=== PATIENT | female | born 1965 ===

== ENCOUNTER 2016-12-20 11:21 | Observation (INO) | payer OTHER ==
[2016-12-20 11:24] VITALS: BMI 24.7
[2016-12-20] MEDS ORDERED: Sodium Chloride 0.9% 2,000 ML IV STA (11:50)
--- NOTE | 2016-12-20 12:01 | ED PDOC ---
Arrival/HPI - General Chief Complaint: High Blood Sugar Time Seen by Provider: 12/20/16 11:48 Historian: Patient - History of Present Illness Narrative History of Present Illness (Text): 12/20/16 11:50 Cecy Ellis is a 51 year old female who presents to the emergency department complaining of 2 days duration of elevated blood sugar. Patient states that she also feels tired. Patient denies any pain, nausea, vomiting, or any other complaint at this time. Time/Duration: 4-6 hours Symptom Onset: Gradual Symptom Course: Unchanged Activities at Onset: Light Context: Home Past Medical History - Provider Review Nursing Documentation Reviewed: Yes - Infectious Disease Hx of Infectious Diseases: None - Reproductive Menopause: Yes - Cardiac Hx Cardiac Disorders: No - Pulmonary Hx Respiratory Disorders: No - Neurological Hx Neurological Disorder: No - HEENT Hx HEENT Disorder: No - Renal Hx Renal Disorder: No - Endocrine/Metabolic Hx Endocrine Disorders: Yes Hx Diabetes Mellitus Type 2: Yes (NIDD) - Hematological/Oncological Hx Blood Disorders: No - Integumentary Hx Dermatological Disorder: No - Musculoskeletal/Rheumatological Hx Musculoskeletal Disorders: No - Gastrointestinal Hx Gastrointestinal Disorders: No - Genitourinary/Gynecological Hx Genitourinary Disorders: No - Psychiatric Hx Psychophysiologic Disorder: No Hx Substance Use: No - Anesthesia Hx Anesthesia: No Family/Social History - Physician Review Nursing Documentation Reviewed: Yes Family/Social History: No Known Family HX Smoking Status: Never Smoked Hx Alcohol Use: No Hx Substance Use: No Allergies/Home Meds Allergies/Adverse Reactions: Allergies No Known Allergies Allergy (Verified 12/20/16 11:24) Home Medications: Home Meds Medication Instructions Recorded Confirmed MetFORMIN [glucoPHAGE] 850 mg PO DAILY 12/20/16 12/20/16 Physical Exam - Physical Exam Narrative Physical Exam (Text): - Review of Systems Constitutional: Generalized weakness. absent: Weight Change, Fevers Eyes: Normal ENT: Normal Respiratory: Normal absent: SOB, Cough, Sputum Cardiovascular: Normal absent: Chest pain, Palpitations, Syncope Gastrointestinal: Normal absent: Abdominal pain, Diarrhea, Nausea, Vomiting Genitourinary: Normal. absent: Dysuria, Frequency, Hematuria Musculoskeletal: Normal. absent: Arthralgias, Back Pain, Neck Pain Skin: Normal Neurological: Normal absent: Focal Weakness Endocrine: Normal Hemo/Lymphatic: Normal Psychiatric: Normal - Physical exam Patient appears age appropriate, speaking full sentences without difficulty. - Systems Exam Head: Present: Atraumatic, Normocephalic Pupils: Present: PERRL Extraocular Muscles: Present: EOMI Conjunctiva: Present: Normal Mouth: Present: Moist Mucous Membranes Neck: Present: Normal Range of Motion. No: MIDLINE TENDERNESS, Paraspinal Tenderness Respiratory/Chest: Present: Clear to Auscultation, Good Air Exchange. No: Respiratory Distress, Accessory Muscle Use, Tachypneic Cardiovascular: Present: Regular Rate and Rhythm, Normal S1, S2, Peripheral Pulses Present. No: Murmurs Abdomen: Present: Normal Bowel Sounds, No: Tenderness, Peritoneal Signs, Rebound, Guarding, Distention Back: Present: Normal Inspection. No: Midline Tenderness, Paraspinal Tenderness Upper Extremity: Present: Normal Inspection. No: Cyanosis, Edema Lower Extremity: Present: Normal Inspection. No: Edema Neurological: Present: GCS=15, Speech Normal, cranial nerves II through XII fully intact with no cerebellar abnormality, neuro-sensory fully intact. No focal neurological deficits. Skin: Present: Warm, Dry, Normal Color. No: Rashes Lymphatic: Present: OX3, NI, NC Psychiatric: Present: Alert, Oriented x 3, Normal Insight, Normal Concentration Vital Signs Reviewed: Yes Vital Signs Temp Pulse Resp BP Pulse Ox 12/20/16 13:18 70 16 140/90 100 12/20/16 11:29 98.2 F 88 19 115/76 97 Temperature: Afebrile Blood Pressure: Normal Pulse: Regular Respiratory Rate: Normal Appearance: Positive for: Well-Appearing, Non-Toxic, Comfortable Pain Distress: None Mental Status: Positive for: Alert and Oriented X 3 Finger Stick Blood Glucose: 462 Medical Decision Making ED Course and Treatment: 12/20/16 11:38 Impression: 51 year old female complaining of 2 days durations of elevated blood sugar. Differential Diagnosis include but are not limited to: Hyperglycemia vs. DKA vs. Dehydration Plan: -- EKG -- Chest X-ray -- VBG -- Urinalysis and Urine Culture -- Labs -- IV Fluids -- Reassess and disposition Progress Notes: EKG shows NSR at [address]-segment elevations, normal intervals. with no prior for comparison. Interpreted by me. 12/20/16 13:06 Chest X-ray: Creator : Ada Eng MD FINDINGS: Examination limited by habitus. LUNGS:No focal consolidation. Please note that chest x-ray has limited sensitivity for the detection of pulmonary masses. PLEURA:No significant pleural effusion identified. No definite pneumothorax . CARDIOVASCULAR:The cardiomediastinal silhouette appears within normal limits of size. OSSEOUS STRUCTURES: No acute osseous abnormality identified. VISUALIZED UPPER ABDOMEN:Mild elevation of the right hemidiaphragm. OTHER FINDINGS:None. IMPRESSION: No focal consolidation, significant pleural effusion, or definite pneumothorax identified. 12/20/16 14:34 repeat glucose in the 300's pt states she feels better states she has no PMD. will likely need insulin and diabetic education hospitalist debbi pt agrees with admission plan 12/20/16 14:[address] Lopez, accepted obs under his service - Lab Interpretations Lab Results: 12/20/16 12:12 12/20/16 12:12 Lab Results 12/20/16 12:12: Sodium 133, Chloride 92 L, Potassium 5.3 H, Carbon Dioxide 27, Anion Gap 19, BUN 16, Creatinine 0.6, Est GFR ( Amer) > 60, Est GFR (Non- Af Amer) > 60, Random Glucose 505 H*, Calcium 11.1 H, Total Bilirubin 0.8, AST 65 H, ALT 109 H, Alkaline Phosphatase 154 H, Lactate Dehydrogenase 397, Total Creatine Kinase 74, Troponin I < 0.01, Total Protein 9.3 H, Albumin 4.9 H, Globulin 4.4, Albumin/Globulin Ratio 1.1 12/20/16 12:12: pO2 62 H, VBG pH 7.37, VBG pCO2 43.0, VBG HCO3 24.9, VBG Total CO2 26.2, VBG O2 Sat (Calc) 92.5 H, VBG Base Excess -0.6 L, VBG Potassium 4.0, Sodium 134.0, Chloride 99.0, Glucose 466 H*, Lactate 1.6, FiO2 21.0, Venous Blood Potassium 4.0 12/20/16 12:12: PT 11.2, INR 1.04, APTT 25.9 12/20/16 12:12: WBC 5.9, RBC 4.90, Hgb 14.6, Hct 42.2, MCV 86.1, MCH 29.8, MCHC 34.6, RDW 12.4, Plt Count 234, MPV 11.5 H, Gran % 50.0, Lymph % (Auto) 44.4 H, [place] % (Auto) 4.6, Eos % (Auto) 0.7 L, Baso % (Auto) 0.3, Gran # 2.96, Lymph # 2.6, [place] # 0.3, Eos # 0.0, Baso # 0.02 12/20/16 12:07: Urine Color Yellow, Urine Appearance Clear, Urine pH 6.0, Ur Specific [place] 1.010, Urine Protein Negative, Urine Glucose (UA) >=1000, Urine Ketones Negative, Urine Blood Negative, Urine Nitrate Negative, Urine Bilirubin Negative, Urine Urobilinogen 0.2, Ur Leukocyte Esterase Negative I have reviewed the lab results: Yes - RAD Interpretation Radiology Orders: 12/20/16 11:51 CHEST PORTABLE [RAD] Stat - Medication Orders Current Medication Orders: Discontinued Medications Sodium Chloride (Sodium Chloride 0.9%) 2,000 mls @ 1,000 mls/hr IV .Q2H STA Stop: 12/20/16 13:49 Last Admin: 12/20/16 12:03 Dose: 1,000 mls/hr - Scribe Statement The provider has reviewed the documentation as recorded by the Monie Morillo Provider Scribe Attestation: All medical record entries made by the Roniibe were at my direction and personally dictated by me. I have reviewed the chart and agree that the record accurately reflects my personal performance of the history, physical exam, medical decision making, and the department course for this patient. I have also personally directed, reviewed, and agree with the discharge instructions and disposition. Disposition/Present on Arrival - Present on Arrival Any Indicators Present on Arrival: No History of DVT/PE: No History of Uncontrolled Diabetes: No Urinary Catheter: No History of Decub. Ulcer: No History Surgical Site Infection Following: None - Disposition Have Diagnosis and Disposition been Completed?: Yes Diagnosis: Hyperglycemia Disposition: HOSPITALIZED Disposition Time: 14:37 Patient Plan: Observation Condition: FAIR
[2016-12-20 12:14] LABS: ADD MANUAL DIFF? NO
[2016-12-20 12:16] LABS: VENOUS BLOOD GAS BASE EXCESS -0.6 mmol/L (0.0-2.0); VENOUS BLOOD PH 7.37 (7.32-7.43)
[2016-12-20 12:21] LABS: BASO # 0.02 K/mm3 (0.0-2.0); BASO % 0.3 % (0.0-3.0); EOS % 0.7 % (1.5-5.0); GRAN # 2.96 (1.4-6.5); HEMATOCRIT 42.2 % (36.0-48.0); LYMPH # 2.6 (1.2-3.4); LYMPH % 44.4 % (22.0-35.0); MEAN CELL VOLUME 86.1 fL (80.0-105.0); MEAN CORPUSCULAR HEMOGLOBIN 29.8 pg (25.0-35.0); MEAN CORPUSCULAR HGB CONC 34.6 g/dl (31.0-37.0); MEAN PLATELET VOLUME 11.5 fl (7.0-11.0); MONO # 0.3 (0.1-0.6); MONO % 4.6 % (1.0-6.0); PLATELET COUNT 234 10^3/uL (120.0-450.0); RED CELL DISTRIBUTION WIDTH 12.4 % (11.5-14.5); WHITE BLOOD COUNT 5.9 10^3/ul (4.5-11.0)
[2016-12-20 12:21] LABS: URINE APPEARANCE CLEAR (CLEAR); URINE BILIRUBIN NEGATIVE (NEGATIVE); URINE BLOOD NEGATIVE (NEGATIVE); URINE COLOR YELLOW (YELLOW); URINE GLUCOSE (UA) >=1000 mg/dL (NEGATIVE); URINE KETONE NEGATIVE (NEGATIVE); URINE LEUKOCYTE ESTERASE NEGATIVE Leu/uL (NEGATIVE); URINE PROTEIN NEGATIVE mg/dL (<30 mg/dL); URINE UROBILINOGEN 0.2 E.U./dL (<1 E.U./dL)
[2016-12-20 12:31] LABS: ALB/GLOB RATIO 1.1 (1.1-1.8); ALKALINE PHOSPHATASE 154 U/L (38-133); ALT/SGPT 109 U/L (7-56); AST/SGOT 65 U/L (15-39); BILIRUBIN,TOTAL 0.8 mg/dL (0.2-1.3); BLOOD UREA NITROGEN 16 mg/dL (7-21); CALCIUM 11.1 mg/dL (8.4-10.5); CARBON DIOXIDE 27 mmol/L (21-33); CHLORIDE 92 mmol/L (98-107); GFR AFRICAN-AMERICAN > 60; POTASSIUM 5.3 mmol/L (3.6-5.0); SODIUM 133 mmol/L (132-148); TOTAL PROTEIN 9.3 g/dL (5.8-8.3)
[2016-12-20 12:34] LABS: GLUCOSE,RANDOM 505 mg/dL (70-110)
[2016-12-20 12:38] LABS: INR 1.04 (0.93-1.08); PARTIAL THROMBOPLASTIN TIME 25.9 Seconds (23.7-30.8)
[2016-12-20 12:50] LABS: TROPONIN I < 0.01 ng/mL
--- NOTE | 2016-12-20 13:08 | RAD ---
HISTORY: weak COMPARISON: None available. TECHNIQUE: Chest, one view. FINDINGS: Examination limited by habitus. LUNGS: No focal consolidation. Please note that chest x-ray has limited sensitivity for the detection of pulmonary masses. PLEURA: No significant pleural effusion identified. No definite pneumothorax . CARDIOVASCULAR: The cardiomediastinal silhouette appears within normal limits of size. OSSEOUS STRUCTURES: No acute osseous abnormality identified. VISUALIZED UPPER ABDOMEN: Mild elevation of the right hemidiaphragm. OTHER FINDINGS: None. IMPRESSION: No focal consolidation, significant pleural effusion, or definite pneumothorax identified.
[2016-12-20] MEDS ORDERED: Pneumococcal 23-Valent Vaccine IM ONE (15:17)
[2016-12-20] MEDS: Sodium Chloride 0.9% 1,000 ML IV SCH (15:33)
--- NOTE | 2016-12-20 15:55 | CARD ---
APPROVED REPORT EKG Measurement Heart [id number] <Conclusion> Normal sinus rhythm Normal ECG
--- NOTE | 2016-12-20 15:59 | US ---
HISTORY: elevated LFTs COMPARISON: None available. TECHNIQUE: Sonographic evaluation of the abdomen. FINDINGS: LIVER: Measures 13.7 cm in sagittal dimension. Echogenic liver may be seen in setting of hepatic parenchymal disease or fatty infiltration. No focal hepatic mass identified. The main portal vein appears patent with normal directional flow. No intrahepatic bile duct dilatation. GALLBLADDER: No gallstones. No gallbladder wall thickening. Negative sonographic Terry's sign as assessed by the deckhand. COMMON BILE DUCT: Measures 3 mm. No stones. No dilatation. PANCREAS: Not well visualized. RIGHT KIDNEY: Measures 9.3 x 4.6 x 5.1 cm. No obstructing calculus or hydronephrosis identified. LEFT KIDNEY: Measures 9.2 x 6.3 x 5.8 cm. No obstructing calculus or hydronephrosis identified. 0.9 x 0.7 x 0.8 cm anechoic avascular lesion, consistent with cyst. SPLEEN: Measures approximately 8.4 cm. AORTA: Limited views appear unremarkable. IVC: Limited views appear unremarkable. OTHER FINDINGS: None. IMPRESSION: Echogenic liver may be seen in setting of hepatic parenchymal disease or fatty infiltration. 9 mm probable left renal cyst.
[2016-12-20] MEDS: Enoxaparin 40 mg Syringe SC SCH (16:05)
[2016-12-20 16:08] LABS: BLOOD UREA NITROGEN 12 mg/dL (7-21); CALCIUM 9.4 mg/dL (8.4-10.5); CARBON DIOXIDE 25 mmol/L (21-33); CHLORIDE 102 mmol/L (98-107); CHOLESTEROL 165 mg/dL (130-200); GFR AFRICAN-AMERICAN > 60; GLUCOSE,RANDOM 287 mg/dL (70-110); MAGNESIUM 1.6 mg/dL (1.7-2.2); POTASSIUM 4.5 mmol/L (3.6-5.0); SODIUM 137 mmol/L (132-148)
[2016-12-20] MEDS: Insulin Reg-MEDIUM-Coverage SC SCH ×2 (17:38→21:40)
--- NOTE | 2016-12-20 17:45 | CP.PCM.HP ---
<Delbert Nelson - Last Filed: 12/20/16 17:49> History of Present Illness - History of Present Illness History of Present Illness: CC: elevated blood sugars 51 year old female with pmh of DM on Metformin, and HTN who presents to the emergency department complaining of elevated blood sugars. Pt states that she checked her blood sugar at home and it was 330's. She states that she only takes Metformin for her DM denies taking insulin. She states that she also had associated blurry vision. Pt also c/o heart palpitations and polyuria recently. She denies this ever occurring before. She denies recent change in diet. Denies any headache, dizziness, + blurry vision, fever, chills, nausea, vomiting, sob, chest pain, +palpitations, abdominal pain, urinary or bm changes. PMH: DM and HTN PSH: denies Med: Metformin and lasix 40 PO ALL: NKA SH: denies drinking, smoking, and drugs. Unemployed FH: dad had liver disease. Present on Admission - Present on Admission Any Indicators Present on Admission: No Review of Systems - Review of Systems All systems: reviewed and no additional remarkable complaints except (HPI) Past Patient History - Infectious Disease Hx of Infectious Diseases: None - Past Social History Smoking Status: Never Smoked Alcohol: None Drugs: Denies - CARDIAC Hx Cardiac Disorders: No - PULMONARY Hx Respiratory Disorders: No - NEUROLOGICAL Hx Neurological Disorder: No - HEENT Hx HEENT Problems: No - RENAL Hx Chronic Kidney Disease: No - ENDOCRINE/METABOLIC Hx Endocrine Disorders: Yes Hx Diabetes Mellitus Type 2: Yes (NIDD) - HEMATOLOGICAL/ONCOLOGICAL Hx Blood Disorders: No - INTEGUMENTARY Hx Dermatological Problems: No - MUSCULOSKELETAL/RHEUMATOLOGICAL Hx Musculoskeletal Disorders: No Hx Falls: No - GASTROINTESTINAL Hx Gastrointestinal Disorders: No - GENITOURINARY/GYNECOLOGICAL Hx Genitourinary Disorders: No - PSYCHIATRIC Hx Psychophysiologic Disorder: No - SURGICAL HISTORY Hx Surgeries: No - ANESTHESIA Hx Anesthesia: No Meds Allergies/Adverse Reactions: Allergies Allergy/AdvReac Type Severity Reaction Status Date / Time No Known Allergies Allergy Verified 12/20/16 11:24 Physical Exam - Constitutional Appears: No Acute Distress - Head Exam Head Exam: ATRAUMATIC, NORMAL INSPECTION, NORMOCEPHALIC - Eye Exam Eye Exam: EOMI, Normal appearance, PERRL Pupil Exam: NORMAL ACCOMODATION, PERRL - ENT Exam ENT Exam: Mucous Membranes Moist, Normal Exam - Neck Exam Neck exam: Positive for: Normal Inspection - Respiratory Exam Respiratory Exam: Clear to Auscultation Bilateral, NORMAL BREATHING PATTERN. absent: Wheezes - Cardiovascular Exam Cardiovascular Exam: REGULAR RHYTHM, RRR, +S1, +S2 - GI/Abdominal Exam GI & Abdominal Exam: Normal Bowel Sounds, Soft. absent: Tenderness - Extremities Exam Extremities exam: Positive for: normal inspection - Back Exam Back exam: NORMAL INSPECTION - Neurological Exam Neurological exam: Alert, Oriented x3 - Psychiatric Exam Psychiatric exam: Normal Affect, Normal Mood - Skin Skin Exam: Dry, Intact, Normal Color, Warm Results - Vital Signs Recent Vital Signs: Last Vital Signs Temp 98.2 F 12/20/16 15:10 Pulse 86 12/20/16 15:38 Resp 16 12/20/16 15:38 BP 144/90 12/20/16 15:38 Pulse Ox 98 12/20/16 15:38 - Labs Result Diagrams: 12/20/16 12:12 12/20/16 15:30 Labs: Laboratory Results - last 24 hr 12/20/16 12/20/16 15:30 15:30 Sodium 137 Potassium 4.5 Chloride 102 Carbon Dioxide 25 Anion Gap 15 BUN 12 Creatinine 0.6 Est GFR ( Amer) > 60 Est GFR (Non-Af Amer) > 60 Random Glucose 287 H Calcium 9.4 Magnesium 1.6 L Triglycerides 229 H Cholesterol 165 LDL Cholesterol Direct 103 HDL Cholesterol 23 L TSH 3rd Generation 0.68 Assessment & Plan - Assessment and Plan (Free Text) Assessment: 51 year old female with pmh of DM on Metformin, and HTN who presents with elevated blood sugars found to have elevated LFTs . 1. DM - Elevated blood sugars: - ISS medium as protocol - ACHS - Levemir 10 units HS - 2L of IVF administered in the ED - IVF NS @ 150 - F/u hba1c, Lipid profile and TSH - EKG showed NSR - trops x 1 negative - AM labs 2: Elevated LFTs - F/u hepatitis panel - F/u abd US 3. Hx of HTN - cont to monitor for now 4. GI/DVT ppx Case and plan was seen, reviewed and discussed in detail with Dr Lopez. <Jessica CHISHOLM,Madai - Last Filed: 12/21/16 16:28> Results - Vital Signs Recent Vital Signs: Last Vital Signs Temp 98.2 F 12/21/16 08:05 Pulse 73 12/21/16 08:05 Resp 20 12/21/16 08:05 BP 138/75 12/21/16 08:05 Pulse Ox 96 12/21/16 08:05 - Labs Result Diagrams: 12/21/16 07:00 12/21/16 07:00 Labs: Laboratory Results - last 24 hr 12/20/16 12/21/16 12/21/16 15:30 07:00 07:00 WBC 5.1 RBC 4.00 Hgb 11.8 L Hct 34.5 L MCV 86.3 MCH 29.5 MCHC 34.2 RDW 12.4 Plt Count 190 MPV 11.4 H Gran % 45.6 L Lymph % (Auto) 47.6 H [place] % (Auto) 4.2 Eos % (Auto) 2.2 Baso % (Auto) 0.4 Gran # 2.31 Lymph # 2.4 [place] # 0.2 Eos # 0.1 Baso # 0.02 Sodium 139 Potassium 4.0 Chloride 105 Carbon Dioxide 25 Anion Gap 13 BUN 8 Creatinine 0.5 Est GFR ( Amer) > 60 Est GFR (Non-Af Amer) > 60 Random Glucose 231 H Calcium 9.2 Total Bilirubin 0.6 AST 82 H ALT 91 H Alkaline Phosphatase 101 Total Protein 7.1 Albumin 3.6 Globulin 3.5 Albumin/Globulin Ratio 1.0 L TSH 3rd Generation 0.68 Attending/Attestation - Attestation I have personally seen and examined this patient.: Yes I have fully participated in the care of the patient.: Yes I have reviewed all pertinent clinical information: Yes Notes (Text): 12/21/16 16:24 Patient was seen and examined with medical geneticist .Agreed with resident assessment and plan. 51 year old female with pmh of DM on Metformin, and HTN who presents with elevated blood sugars found to have elevated LFTs and mild hyperkalemia.Patient will be started on Levemer 10 unit QHS.We will monitor blood sugars and check Hemoglobin 1 Ac. We jeaneth hold ARB due to hypokalemia and will also hold lasix as patient is not in fluid overload.We will follow up liver USG and hepatitic panel. Management plan was discussed in detail with patient Education was provided.
[2016-12-20] MEDS ORDERED: Magnesium Sulfate 2 GM in Sodium Chloride 0.9% 100 ML IVPB ONE (17:56)
[2016-12-20] MEDS: Insulin Detemir 100 units/ml Vial (Levemir) SC SCH (21:39)
[2016-12-21] MEDS: Sodium Chloride 0.9% 1,000 ML IV SCH ×2 (00:35→06:43)
[2016-12-21 08:01] LABS: ADD MANUAL DIFF? NO
[2016-12-21 08:05] VITALS: RESP 20
[2016-12-21 08:34] LABS: BASO # 0.02 K/mm3 (0.0-2.0); BASO % 0.4 % (0.0-3.0); EOS # 0.1 (0.0-0.7); EOS % 2.2 % (1.5-5.0); GRAN # 2.31 (1.4-6.5); GRAN % 45.6 % (50.0-68.0); HEMATOCRIT 34.5 % (36.0-48.0); LYMPH # 2.4 (1.2-3.4); LYMPH % 47.6 % (22.0-35.0); MEAN CELL VOLUME 86.3 fL (80.0-105.0); MEAN CORPUSCULAR HEMOGLOBIN 29.5 pg (25.0-35.0); MEAN CORPUSCULAR HGB CONC 34.2 g/dl (31.0-37.0); MEAN PLATELET VOLUME 11.4 fl (7.0-11.0); MONO # 0.2 (0.1-0.6); MONO % 4.2 % (1.0-6.0); PLATELET COUNT 190 10^3/uL (120.0-450.0); RED CELL DISTRIBUTION WIDTH 12.4 % (11.5-14.5); WHITE BLOOD COUNT 5.1 10^3/ul (4.5-11.0)
[2016-12-21 08:43] LABS: ALKALINE PHOSPHATASE 101 U/L (38-133); ALT/SGPT 91 U/L (7-56); AST/SGOT 82 U/L (15-39); BILIRUBIN,TOTAL 0.6 mg/dL (0.2-1.3); BLOOD UREA NITROGEN 8 mg/dL (7-21); CALCIUM 9.2 mg/dL (8.4-10.5); CARBON DIOXIDE 25 mmol/L (21-33); CHLORIDE 105 mmol/L (98-107); GFR AFRICAN-AMERICAN > 60; GLUCOSE,RANDOM 231 mg/dL (70-110); SODIUM 139 mmol/L (132-148); TOTAL PROTEIN 7.1 g/dL (5.8-8.3)
[2016-12-21] MEDS: Insulin Reg-MEDIUM-Coverage SC SCH ×4 (08:46→22:25)
[2016-12-21] MEDS: Enoxaparin 40 mg Syringe SC SCH (09:11)
--- NOTE | 2016-12-21 13:08 | CP.PCM.PN ---
<Eulalia Garcia - Last Filed: 12/22/16 06:56> Subjective - Date & Time of Evaluation Date of Evaluation: 12/21/16 Time of Evaluation: 12:30 - Subjective Subjective: Pt was seen and examined at bedside. No acute complaints at this time. No adverse or acute events overnight. pt is tolerating po intake and moving bowels and bladder regularly. Pt denied fever, chills, sob, chest pains, abdominal pains, n/v/d/c. Objective - Vital Signs/Intake and Output Vital Signs (last 24 hours): Temp Pulse Resp BP Pulse Ox 98.2 F 73 20 138/75 96 12/21/16 08:05 12/21/16 08:05 12/21/16 08:05 12/21/16 08:05 12/21/16 08:05 Intake and Output: 12/21/16 12/21/16 06:59 18:59 Intake Total 3000 480 Balance 3000 480 - Medications Medications: Current Medications Acetaminophen (Tylenol 325mg Tab) 650 mg PO Q4 PRN PRN Reason: Headache Last Admin: 12/21/16 08:47 Dose: 650 mg Enoxaparin Sodium (Lovenox) 40 mg SC DAILY [facility] PRN Reason: Protocol Last Admin: 12/21/16 09:11 Dose: 40 mg Insulin Detemir (Levemir) 10 unit SC HS [facility] Last Admin: 12/20/16 21:39 Dose: 10 unit Insulin Human Regular (Humulin R Med) 0 units SC ACHS [facility] PRN Reason: Protocol Last Admin: 12/21/16 11:48 Dose: 7 units Losartan Potassium (Cozaar) 50 mg PO DAILY [facility] Magnesium Oxide (Mag-Ox) 400 mg PO DAILY [facility] Ondansetron HCl (Zofran Inj) 4 mg IVP Q6H PRN PRN Reason: Nausea/Vomiting - Labs Labs: 12/21/16 07:00 12/21/16 07:00 PT 11.2 Seconds (9.9-11.8) 12/20/16 12:12 INR 1.04 (0.93-1.08) 12/20/16 12:12 APTT 25.9 Seconds (23.7-30.8) 12/20/16 12:12 - Constitutional Appears: Well, No Acute Distress - Head Exam Head Exam: ATRAUMATIC, NORMAL INSPECTION, NORMOCEPHALIC - Eye Exam Eye Exam: EOMI, Normal appearance, PERRL Pupil Exam: NORMAL ACCOMODATION, PERRL - ENT Exam ENT Exam: Mucous Membranes Moist, Normal Exam - Neck Exam Neck Exam: Full ROM, Normal Inspection. absent: Lymphadenopathy - Respiratory Exam Respiratory Exam: Clear to Ausculation Bilateral, NORMAL BREATHING PATTERN - Cardiovascular Exam Cardiovascular Exam: REGULAR RHYTHM, +S1, +S2. absent: Murmur - GI/Abdominal Exam GI & Abdominal Exam: Soft, Normal Bowel Sounds. absent: Tenderness - Extremities Exam Extremities Exam: Full ROM, Normal Capillary Refill, Normal Inspection. absent : Joint Swelling, Pedal Edema - Back Exam Back Exam: NORMAL INSPECTION - Neurological Exam Neurological Exam: Alert, Awake, CN II-XII Intact, Normal Gait, Oriented x3 - Psychiatric Exam Psychiatric exam: Normal Affect, Normal Mood - Skin Skin Exam: Dry, Intact, Normal Color, Warm Assessment and Plan - Assessment and Plan (Free Text) Assessment: 51 year old female with pmh of DM on Metformin, and HTN who presents with elevated blood sugars found to have elevated LFTs . 1. DM - Elevated blood sugars: - ISS medium as protocol - ACHS - Levemir 10 units HS - IVF NS @ 150 - F/u hba1c, Lipid profile and TSH - EKG showed NSR - serial trops negative - AM labs 2: Elevated LFTs - F/u hepatitis panel - abd US demonstrated fatty liver - hold metformin and lasix 3. Hyperkalemia - resolved - restart arb, losartan 3. Hx of HTN - cont to monitor for now 4. GI/DVT ppx Seen reviewed and discussed with attending <Jessica CHISHOLM,Madai - Last Filed: 12/22/16 16:01> Objective - Vital Signs/Intake and Output Vital Signs (last 24 hours): Temp Pulse Resp BP Pulse Ox 98.4 F 79 20 102/66 95 12/22/16 07:30 12/22/16 10:00 12/22/16 07:30 12/22/16 10:00 12/22/16 07:30 Intake and Output: 12/22/16 12/22/16 06:59 18:59 Intake Total 960 Balance 960 - Medications Medications: Current Medications Acetaminophen (Tylenol 325mg Tab) 650 mg PO Q4 PRN PRN Reason: Headache Last Admin: 12/21/16 08:47 Dose: 650 mg Enoxaparin Sodium (Lovenox) 40 mg SC DAILY KARLA PRN Reason: Protocol Last Admin: 12/22/16 09:59 Dose: 40 mg Insulin Detemir (Levemir) 10 unit SC HS [facility] Last Admin: 12/21/16 21:42 Dose: 10 unit Insulin Human Lispro (Humalog High) 0 units SC ACHS KARLA PRN Reason: Protocol Last Admin: 12/22/16 11:47 Dose: 7 units Losartan Potassium (Cozaar) 50 mg PO DAILY [facility]LA Last Admin: 12/22/16 10:00 Dose: 50 mg Magnesium Oxide (Mag-Ox) 400 mg PO DAILY [facility] Last Admin: 12/22/16 10:00 Dose: 400 mg Ondansetron HCl (Zofran Inj) 4 mg IVP Q6H PRN PRN Reason: Nausea/Vomiting - Labs Labs: 12/22/16 07:35 12/22/16 07:35 PT 11.2 Seconds (9.9-11.8) 12/20/16 12:12 INR 1.04 (0.93-1.08) 12/20/16 12:12 APTT 25.9 Seconds (23.7-30.8) 12/20/16 12:12 Attending/Attestation - Attestation I have personally seen and examined this patient.: Yes I have fully participated in the care of the patient.: Yes I have reviewed all pertinent clinical information, including history, physical exam and plan: Yes Notes (Text): Patient was seen and examined with medical photographer .Agreed with resident assessment and plan. 51 yrs old female with uncontrol DM, elevated LFT likely due to fatty infilteration of liver.Blood sugars are coming down, can be discharged home on Levemir and Metformin.HbIAC is pending.Patient will need diabetic education prior to discharge.Theissue of compliance with medication and compliance with diet was discussed in detail with the patient.Patient will follow up with [facility]. Management plan was discussed in detail with patient Education was provided.
[2016-12-21] MEDS: Magnesium Oxide 400 mg Tab UD PO SCH (16:49)
[2016-12-21] MEDS: Insulin Detemir 100 units/ml Vial (Levemir) SC SCH (21:42)
[2016-12-22 06:32] VITALS: PULSE 79; TEMP 98.4; O2SAT 95
[2016-12-22 07:43] LABS: ADD MANUAL DIFF? NO
[2016-12-22 07:48] LABS: BASO # 0.01 K/mm3 (0.0-2.0); BASO % 0.2 % (0.0-3.0); EOS # 0.1 (0.0-0.7); EOS % 1.1 % (1.5-5.0); GRAN # 2.18 (1.4-6.5); GRAN % 41.7 % (50.0-68.0); HEMATOCRIT 37.2 % (36.0-48.0); LYMPH # 2.7 (1.2-3.4); LYMPH % 51.8 % (22.0-35.0); MEAN CELL VOLUME 85.9 fL (80.0-105.0); MEAN CORPUSCULAR HEMOGLOBIN 29.8 pg (25.0-35.0); MEAN CORPUSCULAR HGB CONC 34.7 g/dl (31.0-37.0); MEAN PLATELET VOLUME 10.8 fl (7.0-11.0); MONO # 0.3 (0.1-0.6); MONO % 5.2 % (1.0-6.0); PLATELET COUNT 197 10^3/uL (120.0-450.0); RED CELL DISTRIBUTION WIDTH 12.3 % (11.5-14.5); WHITE BLOOD COUNT 5.2 10^3/ul (4.5-11.0)
[2016-12-22 07:57] LABS: ALB/GLOB RATIO 1.1 (1.1-1.8); ALKALINE PHOSPHATASE 108 U/L (38-133); ALT/SGPT 95 U/L (7-56); AST/SGOT 61 U/L (15-39); BILIRUBIN,TOTAL 0.6 mg/dL (0.2-1.3); BLOOD UREA NITROGEN 13 mg/dL (7-21); CALCIUM 10.1 mg/dL (8.4-10.5); CARBON DIOXIDE 25 mmol/L (21-33); CHLORIDE 102 mmol/L (95-110); GFR AFRICAN-AMERICAN > 60; GLUCOSE,RANDOM 274 mg/dL (70-110); MAGNESIUM 1.8 mg/dL (1.7-2.2); PHOSPHOROUS 4.3 mg/dL (2.5-4.5); POTASSIUM 4.2 mmol/L (3.6-5.0); SODIUM 138 mmol/L (132-148)
[2016-12-22] MEDS ORDERED: Insulin Lispro 1 UNITS/0.01 ML SC STA (08:44)
[2016-12-22 09:26] VITALS: BP 102/66
[2016-12-22] MEDS: Enoxaparin 40 mg Syringe SC SCH (09:59)
[2016-12-22] MEDS: Magnesium Oxide 400 mg Tab UD PO SCH (10:00)
[2016-12-22] MEDS: Insulin Lispro (HUMAlog) HIGH Coverage SC SCH ×2 (11:47→16:31)
--- NOTE | 2016-12-22 14:13 | CP.PCM.DIS ---
Provider - Provider Date of Admission: 12/20/16 14:38 Attending physician: Madai Lopez MD Hospital Course - Lab Results Lab Results: Most Recent Lab Values WBC 5.2 10^3/ul (4.5-11.0) 12/22/16 07:35 RBC 4.33 10^6/uL (3.5-6.1) 12/22/16 07:35 Hgb 12.9 gm/dL (12.0-16.0) 12/22/16 07:35 Hct 37.2 % (36.0-48.0) 12/22/16 07:35 MCV 85.9 fL (80.0-105.0) 12/22/16 07:35 MCH 29.8 pg (25.0-35.0) 12/22/16 07:35 MCHC 34.7 g/dl (31.0-37.0) 12/22/16 07:35 RDW 12.3 % (11.5-14.5) 12/22/16 07:35 Plt Count 197 10^3/uL (120.0-450.0) 12/22/16 07:35 MPV 10.8 fl (7.0-11.0) 12/22/16 07:35 Gran % 41.7 % (50.0-68.0) L 12/22/16 07:35 Lymph % (Auto) 51.8 % (22.0-35.0) H 12/22/16 07:35 [place] % (Auto) 5.2 % (1.0-6.0) 12/22/16 07:35 Eos % (Auto) 1.1 % (1.5-5.0) L 12/22/16 07:35 Baso % (Auto) 0.2 % (0.0-3.0) 12/22/16 07:35 Gran # 2.18 (1.4-6.5) 12/22/16 07:35 Lymph # 2.7 (1.2-3.4) 12/22/16 07:35 [place] # 0.3 (0.1-0.6) 12/22/16 07:35 Eos # 0.1 (0.0-0.7) 12/22/16 07:35 Baso # 0.01 K/mm3 (0.0-2.0) 12/22/16 07:35 PT 11.2 Seconds (9.9-11.8) 12/20/16 12:12 INR 1.04 (0.93-1.08) 12/20/16 12:12 APTT 25.9 Seconds (23.7-30.8) 12/20/16 12:12 pO2 62 mm/Hg (30-55) H 12/20/16 12:12 VBG pH 7.37 (7.32-7.43) 12/20/16 12:12 VBG pCO2 43.0 (40-60) 12/20/16 12:12 VBG HCO3 24.9 mmol/l (21-28) 12/20/16 12:12 VBG Total CO2 26.2 mmol.L (22-28) 12/20/16 12:12 VBG O2 Sat (Calc) 92.5 % (40-65) H 12/20/16 12:12 VBG Base Excess -0.6 mmol/L (0.0-2.0) L 12/20/16 12:12 VBG Potassium 4.0 mmol/L (3.6-5.2) 12/20/16 12:12 Sodium 134.0 mmol/L (132-148) 12/20/16 12:12 Chloride 99.0 mmol/L (98-107) 12/20/16 12:12 Glucose 466 mg/dl (65-105) H* 12/20/16 12:12 Lactate 1.6 mmol/L (0.7-2.1) 12/20/16 12:12 FiO2 21.0 % 12/20/16 12:12 Sodium 138 mmol/L (132-148) 12/22/16 07:35 Potassium 4.2 mmol/L (3.6-5.0) 12/22/16 07:35 Chloride 102 mmol/L (95-110) 12/22/16 07:35 Carbon Dioxide 25 mmol/L (21-33) 12/22/16 07:35 Anion Gap 15 (10-20) 12/22/16 07:35 BUN 13 mg/dL (7-21) 12/22/16 07:35 Creatinine 0.6 mg/dL (0.5-1.4) 12/22/16 07:35 Est GFR ( Amer) > 60 12/22/16 07:35 Est GFR (Non-Af Amer) > 60 12/22/16 07:35 POC Glucose (mg/dL) 462 mg/dL (65-110) H* 12/20/16 11:29 Random Glucose 274 mg/dL (70-110) H 12/22/16 07:35 Hemoglobin A1c 10.6 % (4.2-6.5) H 12/20/16 15:30 Calcium 10.1 mg/dL (8.4-10.5) 12/22/16 07:35 Phosphorus 4.3 mg/dL (2.5-4.5) 12/22/16 07:35 Magnesium 1.8 mg/dL (1.7-2.2) 12/22/16 07:35 Total Bilirubin 0.6 mg/dL (0.2-1.3) 12/22/16 07:35 AST 61 U/L (15-39) H 12/22/16 07:35 ALT 95 U/L (7-56) H 12/22/16 07:35 Alkaline Phosphatase 108 U/L (38-133) 12/22/16 07:35 Lactate Dehydrogenase 397 U/L (333-699) 12/20/16 12:12 Total Creatine Kinase 74 U/L (35-230) 12/20/16 12:12 Troponin I < 0.01 ng/mL 12/20/16 12:12 Total Protein 8.0 g/dL (5.8-8.3) 12/22/16 07:35 Albumin 4.2 g/dL (3.0-4.8) 12/22/16 07:35 Globulin 3.8 gm/dL 12/22/16 07:35 Albumin/Globulin Ratio 1.1 (1.1-1.8) 12/22/16 07:35 Triglycerides 229 mg/dL (35-160) H 12/20/16 15:30 Cholesterol 165 mg/dL (130-200) 12/20/16 15:30 LDL Cholesterol Direct 103 mg/dL (0-129) 12/20/16 15:30 HDL Cholesterol 23 mg/dL (29-60) L 12/20/16 15:30 TSH 3rd Generation 0.68 mIU/mL (0.46-4.68) 12/20/16 15:30 Venous Blood Potassium 4.0 mmol/L (3.6-5.2) 12/20/16 12:12 Urine Color Yellow (YELLOW) 12/20/16 12:07 Urine Appearance Clear (CLEAR) 12/20/16 12:07 Urine pH 6.0 (4.7-8.0) 12/20/16 12:07 Ur Specific [place] 1.010 (1.005-1.035) 12/20/16 12:07 Urine Protein Negative mg/dL (<30 mg/dL) 12/20/16 12:07 Urine Glucose (UA) >=1000 mg/dL (NEGATIVE) 12/20/16 12:07 Urine Ketones Negative mg/dL (NEGATIVE) 12/20/16 12:07 Urine Blood Negative (NEGATIVE) 12/20/16 12:07 Urine Nitrate Negative (NEGATIVE) 12/20/16 12:07 Urine Bilirubin Negative (NEGATIVE) 12/20/16 12:07 Urine Urobilinogen 0.2 E.U./dL (<1 E.U./dL) 12/20/16 12:07 Ur Leukocyte Esterase Negative [place]/uL (NEGATIVE) 12/20/16 12:07 Ur Random Creatinine 16 mg/dL 12/20/16 12:05 Hepatitis A IgM Ab Negative (NEGATIVE) 12/21/16 11:50 Hep Bs Antigen Negative (NEGATIVE) 12/21/16 11:50 Hep B Core IgM Ab Negative (NEGATIVE) 12/21/16 11:50 Hepatitis C Antibody Negative (NEGATIVE) 12/21/16 11:50 Discharge Exam - Head Exam Head Exam: ATRAUMATIC, NORMAL INSPECTION, NORMOCEPHALIC Discharge Plan - Discharge Medications Prescriptions: Insulin Detemir [Levemir] 10 units SC HS 30 Days Losartan [Cozaar] 50 mg PO DAILY #30 tab metFORMIN [glucOPHAGE] 500 mg PO BID #60 tab [place]-3 Fatty Acids/Fish Oil [Fish Oil 1,000 mg Capsule] 1 each PO BID #60 capsule - Follow Up Plan Condition: FAIR Disposition: HOME/ ROUTINE Instructions: Diabetic Foot Care (DC), Diabetes Mellitus Type 1 in Adults (DC) , Diabetic Hyperglycemia (DC) Additional Instructions: 1. Pt is to FU with [facility] clinic within 1 week. 2. Pt is encouraged to fu HA1c results 3. Pt is to no longer take lasix, pt has been restarted on her ARB (cozaar) 4. Pt is encouraged to follow a diabetic friendly diet 5. Pt is encouraged to get plenty of exercise 6. Pt welcomed to return to [facility] ED if any acute symptoms develop
== END 2016-12-22 17:48 | disposition home or self-care (01) ==
LOC: ED 11:21 → ERH 14:38 → 5RNO 17:27
PROVIDERS: ADMIT Internal Medicine; ATTEND Internal Medicine
DX: E11.65 Type 2 diabetes mellitus with hyperglycemia (principal); E87.5 Hyperkalemia; I10 Essential (primary) hypertension; K76.0 Fatty (change of) liver, not elsewhere classified; Z79.84 Long term (current) use of oral hypoglycemic drugs; R40.2412 Glasgow coma scale score 13-15, at arrival to emergency department; Z23 Encounter for immunization
CPT/HCPCS: 36415; 71010; 76700; 80053; 80061; 80074; 81003; 82550; 82570; 82803; 82948; 83036; 83615; 83735; 84100; 84443; 84484; 85025; 85610; 85730; 87086; 90732; 93005; 96360; 96361; 96372; 99285; G0009; G0378; J1650; J1885; J3475; J7040

== ENCOUNTER 2017-11-03 15:24 | Emergency (ER) | payer OTHER ==
[2017-11-03 15:44] VITALS: BMI 25.7
[2017-11-03 15:47] VITALS: TEMP 98
--- NOTE | 2017-11-03 16:52 | ED PDOC ---
Arrival/HPI - General Chief Complaint: High Blood Sugar Time Seen by Provider: 11/03/17 15:52 Historian: Patient, Family EM Caveat: Language Barrier ([place]) - History of Present Illness Narrative History of Present Illness (Text): 11/03/17 16:48 Pt is a 52 yr old [place] speaking female, who presents to the ED with a high glucose reading x 1 week. Pt reports she take s metformin PO 850 mg bid along with Atorvastatin and Losartan, but sugar fluctuates between 500 and 600. Family member at bedside states that the patient eats many green bananas throughout the day along with yams. Pt states she has a funny taste in her mouth ; denies chest pain, shortness of breath, fever, chills, back pain, n/v/d or any other complaints Time/Duration: > week Symptom Onset: Gradual Symptom Course: Unchanged, Intermittent Severity Level: 1 Activities at Onset: Rest Context: Home Past Medical History - Provider Review Nursing Documentation Reviewed: Yes - Travel History Have you recently traveled outside [place] w/in the past 3 mons?: No - Infectious Disease Hx of Infectious Diseases: None - Reproductive Menopause: Yes - Cardiac Hx Cardiac Disorders: No Hx Hypertension: Yes - Pulmonary Hx Respiratory Disorders: No - Neurological Hx Neurological Disorder: No - HEENT Hx HEENT Disorder: No - Renal Hx Renal Disorder: No - Endocrine/Metabolic Hx Endocrine Disorders: Yes Hx Diabetes Mellitus Type 2: Yes (NIDD) - Hematological/Oncological Hx Blood Disorders: No - Integumentary Hx Dermatological Disorder: No - Musculoskeletal/Rheumatological Hx Musculoskeletal Disorders: No Hx Falls: No - Gastrointestinal Hx Gastrointestinal Disorders: No - Genitourinary/Gynecological Hx Genitourinary Disorders: No - Psychiatric Hx Psychophysiologic Disorder: No Hx Substance Use: No - Anesthesia Hx Anesthesia: No Family/Social History - Physician Review Nursing Documentation Reviewed: Yes Family/Social History: Unknown Family HX Smoking Status: Never Smoked Hx Alcohol Use: No Hx Substance Use: No Allergies/Home Meds Allergies/Adverse Reactions: Allergies No Known Allergies Allergy (Verified 12/20/16 11:24) Review of Systems - Review of Systems Constitutional: Normal Eyes: Normal ENT: Normal Respiratory: Normal Cardiovascular: Normal Gastrointestinal: Normal Genitourinary Female: Frequency Musculoskeletal: Normal Skin: Normal Neurological: Normal Endocrine: Normal Hemo/Lymphatic: Normal Psychiatric: Normal Physical Exam Vital Signs Reviewed: Yes Vital Signs Temp Pulse Resp BP Pulse Ox 11/03/17 20:21 85 18 121/84 100 11/03/17 19:27 76 16 120/70 99 11/03/17 17:27 66 16 126/72 99 11/03/17 15:25 98 F 98 H 18 123/61 100 Temperature: Afebrile Blood Pressure: Normal Pulse: Regular Respiratory Rate: Normal Appearance: Positive for: Well-Appearing, Non-Toxic, Comfortable Pain Distress: None Mental Status: Positive for: Alert and Oriented X 3 Finger Stick Blood Glucose: 383 - Systems Exam Head: Present: Atraumatic, Normocephalic Pupils: Present: PERRL Extroacular Muscles: Present: EOMI Conjunctiva: Present: Normal Mouth: Present: Moist Mucous Membranes Neck: Present: Normal Range of Motion Respiratory/Chest: Present: Clear to Auscultation, Good Air Exchange. No: Respiratory Distress, Accessory Muscle Use Cardiovascular: Present: Regular Rate and Rhythm, Normal S1, S2. No: Murmurs Abdomen: No: Tenderness, Distention, Peritoneal Signs Back: Present: Normal Inspection Upper Extremity: Present: Normal Inspection. No: Cyanosis, Edema Lower Extremity: Present: Normal Inspection. No: Edema Neurological: Present: GCS=15, CN II-XII Intact, Speech Normal Skin: Present: Warm, Dry, Normal Color. No: Rashes Psychiatric: Present: Alert, Oriented x 3, Normal Insight, Normal Concentration Medical Decision Making ED Course and Treatment: 11/03/17 16:55 Impression Pt is a 52 yr old [place] speaking female, who presents to the ED with a high glucose reading x 1 week. On exam, no sig findings Plan DKA w/u Labs and check glucose assess and dispo Progress note 11/03/17 18:12 Glucose is trending down from 383-->326-->231 Advised pt to follow up with PMD tomorrow to discuss referral to project administrator to assist in food selection and meals VSS on d/c - Lab Interpretations Lab Results: 11/03/17 17:00 11/03/17 17:00 Lab Results 11/03/17 17:40: Urine Color Yellow, Urine Appearance Clear, Urine pH 6.0, Ur Specific [place] 1.010, Urine Protein Negative, Urine Glucose (UA) >=1000, Urine Ketones Negative, Urine Blood Negative, Urine Nitrate Negative, Urine Bilirubin Negative, Urine Urobilinogen 0.2, Ur Leukocyte Esterase Negative 11/03/17 17:00: Sodium 140, Potassium 4.9, Chloride 100, Carbon Dioxide 28, Anion Gap 17, BUN 14, Creatinine 0.6 L, Est GFR ( Amer) > 60, Est GFR ( Non-Af Amer) > 60, Random Glucose 335 H* D, Calcium 10.4, Total Bilirubin 0.4, AST 48 H D, ALT 82 H, Alkaline Phosphatase 105, Lactate Dehydrogenase 358, Total Creatine Kinase 69, Troponin I < 0.01, Total Protein 8.7 H, Albumin 4.3, Globulin 4.3, Albumin/Globulin Ratio 1.0 L 11/03/17 17:00: WBC 6.8, RBC 4.24, Hgb 12.4, Hct 36.8, MCV 86.8, MCH 29.2, MCHC 33.7, RDW 12.7, Plt Count 221, MPV 10.9, Gran % 51.2, Lymph % (Auto) 43.7 H, [place] % (Auto) 4.6, Eos % (Auto) 0.4 L, Baso % (Auto) 0.1, Gran # 3.47, Lymph # ( Auto) 3.0, [place] # (Auto) 0.3, Eos # (Auto) 0.0, Baso # (Auto) 0.01 11/03/17 15:44: POC Glucose (mg/dL) 383 H I have reviewed the lab results: Yes (Glucose trending down: 386>>323>>231) - Medication Orders Current Medication Orders: Discontinued Medications Sodium Chloride (Sodium Chloride 0.9%) 500 mls @ 1,000 mls/hr IV .Q30M STA Stop: 11/03/17 17:45 Last Admin: 11/03/17 18:21 Dose: 1,000 mls/hr eMAR Start Stop Document 11/03/17 18:21 MS (Rec: 11/03/17 18:21 MS [id number]) Intravenous Solution Start Date 11/03/17 Start Time 18:21 End Date 11/03/17 End time 18:51 Total Infusion Time 30 Disposition/Present on Arrival - Present on Arrival Any Indicators Present on Arrival: Yes History of DVT/PE: No History of Uncontrolled Diabetes: Yes Urinary Catheter: No History of Decub. Ulcer: No History Surgical Site Infection Following: None - Disposition Have Diagnosis and Disposition been Completed?: Yes Diagnosis: Hyperglycemia, Poor glycemic control Disposition: HOME/ ROUTINE Disposition Time: 19:55 Patient Plan: Discharge Condition: GOOD Discharge Instructions (ExitCare): Diabetes Exchange Diet, Hyperglycemia, Adult (DC) Additional Instructions: Cecy, thank you for letting us take care of you today. Your provider was VLADIMIR Rodriguez. You were treated for High Blood Sugar. The emergency medical care you received today was directed at your acute symptoms. If you were prescribed any medication, please fill it and take as directed. It may take several days for your symptoms to resolve. Return to the Emergency Department if your symptoms worsen, do not improve, or if you have any other problems. Please see Dr. Summers in the next 2 days to have your medication modified and see a Edger Tailer to plan meals Please contact your doctor or call one of the physicians/clinics you have been referred to that are listed on the Patient Visit Information form that is included in your discharge packet. Bring any paperwork you were given at discharge with you along with any medications you are taking to your follow up visit. Our treatment cannot replace ongoing medical care by a primary care provider (PCP) outside of the emergency department. Thank you for allowing the [facility] team to be part of your care today. I Referrals: Gilmer Summers [Primary Care Provider] - Follow up with primary [facility] [Outside] - Follow up with primary Forms: [place] ([place])
[2017-11-03] MEDS ORDERED: Sodium Chloride 0.9% 500 ML IV STA (17:16)
[2017-11-03 17:37] LABS: BASO # 0.01 K/mm3 (0.0-2.0); BASO % 0.1 % (0.0-3.0); EOS % 0.4 % (1.5-5.0); GRAN # 3.47 (1.4-6.5); GRAN % 51.2 % (50.0-68.0); HEMOGLOBIN 12.4 g/dL (12.0-16.0); LYMPH % 43.7 % (22.0-35.0); MEAN CELL VOLUME 86.8 fl (80.0-105.0); MEAN CORPUSCULAR HEMOGLOBIN 29.2 pg (25.0-35.0); MEAN CORPUSCULAR HGB CONC 33.7 g/dl (31.0-37.0); MEAN PLATELET VOLUME 10.9 fl (7.0-11.0); MONO # 0.3 (0.1-0.6); MONO % 4.6 % (1.0-6.0); RBC 4.24 10^6/uL (3.5-6.1); RED CELL DISTRIBUTION WIDTH 12.7 % (11.5-14.5); WHITE BLOOD COUNT 6.8 10^3/ul (4.5-11.0)
[2017-11-03 17:38] LABS: TROPONIN I < 0.01 ng/mL
[2017-11-03 17:41] LABS: ALBUMIN 4.3 g/dL (3.0-4.8); ALT/SGPT 82 U/L (7-56); AST/SGOT 48 U/L (14-36); BLOOD UREA NITROGEN 14 mg/dL (7-21); CALCIUM 10.4 mg/dL (8.4-10.5); GFR AFRICAN-AMERICAN > 60; GFR NON-AFRICAN AMERICAN > 60
[2017-11-03 18:01] LABS: URINE BILIRUBIN NEGATIVE (NEGATIVE); URINE BLOOD NEGATIVE (NEGATIVE); URINE GLUCOSE (UA) >=1000 mg/dL (NEGATIVE); URINE LEUKOCYTE ESTERASE NEGATIVE Leu/uL (NEGATIVE); URINE PROTEIN NEGATIVE mg/dL (<30 mg/dL); URINE UROBILINOGEN 0.2 E.U./dL (<1 E.U./dL)
[2017-11-03 18:17] LABS: URINE APPEARANCE CLEAR (CLEAR); URINE COLOR YELLOW (YELLOW)
[2017-11-03 20:49] VITALS: BP 121/84; PULSE 85; RESP 18; O2SAT 100
== END 2017-11-03 20:21 | disposition home or self-care (01) ==
LOC: ED 15:24
DX: E11.65 Type 2 diabetes mellitus with hyperglycemia (principal); I10 Essential (primary) hypertension
CPT/HCPCS: 80053; 81003; 82550; 82948; 83615; 84484; 85025; 99284; J7040

== ENCOUNTER 2018-08-13 14:33 | Outpatient (CLI) | payer OTHER | END 2018-08-13 14:34 | disposition home or self-care (01) | LOC: LAB 14:33 ==

== ENCOUNTER 2018-08-20 06:54 | Outpatient (CLI) | payer OTHER | END 2018-08-20 06:55 | disposition home or self-care (01) | LOC: CARDIO 06:54 ==